=== PATIENT | male | born 1965 | race Caucasian/White ===

== ENCOUNTER 2016-10-24 21:46 | Emergency (ER) | payer MEDICARE ==
[~2016-10-24] VITALS: Ht 172.7 cm; Wt 90.8 kg
[2016-10-25 00:32] LABS: ADD MIUA? YES; BILIRUBIN SMALL; BLOOD NEGATIVE; COLOR YELLOW ((YELLOW)); GLUCOSE (STRIP) NEGATIVE; KETONES NEGATIVE; LEUKOCYTES NEGATIVE; NITRITE NEGATIVE; PH, URINE 5.5 (5-8); PROTEIN (STRIP) 30; SPECIFIC GRAVITY 1.027 (1.000-1.030); UROBILINOGEN 0.2 MG/DL (0.2-1.0)
[2016-10-25 00:52] LABS: BACTERIA 1+ /HPF; CASTS NONE SEEN /LPF; CRYSTALS NONE SEEN; EPITHELIAL CELLS 1+ /HPF; MUCUS 2+ /LPF; RED BLOOD CELLS NONE SEEN /HPF (0-5); UCUL ADDED? NO; WHITE BLOOD CELLS 0-5 /HPF (0-5)
[2016-10-25] MEDS ORDERED: NAPROSYN500 MG PO (01:47)
[2016-10-25] MEDS ORDERED: PERCOCET 5/31 TABLET PO (01:47)
[2016-10-25 02:03] VITALS: BP 112/68
[2016-10-25] MEDS ORDERED: ATORVASTATIN CA10 MG PO (03:06)
== END 2016-10-25 02:04 | disposition home or self-care (01) ==
LOC: EME 21:46
PROVIDERS: Physician Assistant
DX: S20.221A Contusion of right back wall of thorax, initial encounter (principal); S30.810A Abrasion of lower back and pelvis, initial encounter; W11.XXXA Fall on and from ladder, initial encounter; R11.0 Nausea
CPT/HCPCS: 71020; 81003; 99281; 99284